=== PATIENT | female | born 1970 | race Caucasian/White ===

== ENCOUNTER 2017-11-16 07:45 | Emergency (ER) | END 2017-11-16 10:15 | disposition home or self-care (01) ==

== ENCOUNTER 2019-02-18 13:06 | Emergency (ER) | payer OTHER ==
[~2019-02-18] VITALS: Ht 160 cm; Wt 59.6 kg
[~2019-02-18 13:06] MED LIST: IBUP-1542 PO
[2019-02-18 13:24] VITALS: Ht 160 cm; Wt 59.6 kg
[2019-02-18] MEDS ORDERED: ONDANSETRON 4 MG INJ IV STA (13:58)
[2019-02-18] MEDS ORDERED: LACTATED RINGER'S 1,000 ML IV STA (13:58)
[2019-02-18] MEDS ORDERED: morphine 4 MG/ML VIAL IV STA (13:58)
--- NOTE | 2019-02-18 15:02 | ERD ---
ER Documentation Chief Complaint Chief Complaint ON AND OFF ABD PAIN X6 DAYS, NO N/V/D HPI This is a 49-year-old female with no previous medical problems who presents to the ER for evaluation of abdominal pain. The patient states that she had abdominal pain for the past 6 days which is progressively gotten worse. She does state that her abdominal pain started after a coughing episode and she thinks that she could have a hernia. The patient localizes the abdominal pain to the right lower portion abdomen and came to the emergency room today for evaluation. She denies any fevers chills nausea vomiting associated with this. She denies any relieving factors at this time and states that coughing or movement of her abdomen makes it worse ROS All systems reviewed and are negative except as per history of present illness. Medications Home Meds Discontinued Scripts Ibuprofen* (Ibuprofen*) 600 Mg Tablet, 600 MG PO Q8 for PAIN AND/OR INFLAMMATION, #30 TAB Prov:SILVER HANEY MD 11/16/17 Allergies Allergies: Coded Allergies: Penicillins (Unverified Allergy, Mild, 02/18/19) cephalexin (Verified Allergy, Mild, 02/18/19) PMhx/Soc Medical and Surgical Hx: pt denies Medical Hx, pt denies Surgical Hx Hx Alcohol Use: Yes (socially) Hx Substance Use: No Hx Tobacco Use: Yes ('quit recently') Smoking Status: Former smoker Physical Exam Vitals Vital Signs Date Temp Pulse Resp B/P (MAP) Pulse Ox O2 O2 Flow FiO2 Time Delivery Rate 02/18/19 75 18 125/92 98 Room Air 15:27 (103) 02/18/19 97.7 71 16 124/82 98 13:24 (96) Physical Exam INITIAL VITAL SIGNS: Reviewed by me GENERAL: The patient is well developed and appropriate for usual state of health in no apparent distress HEENT: Pupils equal, round, and reactive to light. EOMI. There is no scleral icterus. NECK: C-spine is soft and supple, there is no meningismus. There is no cervical lymphadenopathy. LUNGS: Clear to auscultation bilaterally. There are no rales, wheezes or rhonchi. HEART: Regular rate and rhythm, no murmurs, clicks, rubs or gallops. ABDOMEN: Periumbilical tenderness to palpation, right lower quadrant tenderness to palpation, otherwise soft, non-tender, non-distended. There are bowel sounds in all four quadrants. No rebound or guarding. EXTREMITIES: There is no peripheral cyanosis or edema. No focal swelling or erythema. NEUROLOGICAL: The patient moves all four extremities with 5/5 strength. Cranial nerves II - XII are intact. Normal gait. Alert and oriented SKIN: There is no apparent rash or petechiae. HEME/LYMPHATIC: There is no evidence of excessive bruising or lymphedema. PSYCHIATRIC: The patient does not appear anxious or depressed. Result Diagram: 02/18/19 1415 02/18/19 1415 Results 24 hrs Laboratory Tests Test 02/18/19 14:08 02/18/19 14:15 POC Beta HCG, Qualitative NEGATIVE White Blood Count 10.6 10^3/ul Red Blood Count 4.04 10^6/ul Hemoglobin 13.9 g/dl Hematocrit 41.7 % Mean Corpuscular Volume 103.2 fl Mean Corpuscular Hemoglobin 34.4 pg Mean Corpuscular Hemoglobin Concent 33.3 g/dl Red Cell Distribution Width 12.7 % Platelet Count 258 10^3/UL Mean Platelet Volume 8.8 fl Immature Granulocytes % 0.800 % Neutrophils % 63.4 % Lymphocytes % 25.2 % Monocytes % 8.4 % Eosinophils % 1.5 % Basophils % 0.7 % Nucleated Red Blood Cells % 0.0 /100WBC Immature Granulocytes # 0.090 10^3/ul Neutrophils # 6.7 10^3/ul Lymphocytes # 2.7 10^3/ul Monocytes # 0.9 10^3/ul Eosinophils # 0.2 10^3/ul Basophils # 0.1 10^3/ul Nucleated Red Blood Cells # 0.0 10^3/ul Urine Color YELLOW Urine Clarity SLIGHTLY CLOUDY Urine pH 5.0 Urine Specific [place] 1.010 Urine Ketones NEGATIVE mg/dL Urine Nitrite NEGATIVE mg/dL Urine Bilirubin NEGATIVE mg/dL Urine Urobilinogen NEGATIVE mg/dL Urine Leukocyte Esterase 1+ Cedric/ul Urine Microscopic RBC 4 /HPF Urine Microscopic WBC 4 /HPF Urine Squamous Epithelial Cells FEW /HPF Urine Bacteria FEW /HPF Urine Mucus FEW /HPF Urine Hemoglobin NEGATIVE mg/dL Urine Glucose NEGATIVE mg/dL Urine Total Protein NEGATIVE mg/dl Sodium Level 142 mmol/L Potassium Level 4.4 mmol/L Chloride Level 107 mmol/L Carbon Dioxide Level 21 mmol/L Anion Gap 14 Blood Urea Nitrogen 9 mg/dl Creatinine 0.68 mg/dl Est Glomerular Filtrat Rate mL/min > 60 mL/min Glucose Level 83 mg/dl Calcium Level 9.3 mg/dl Total Bilirubin 0.6 mg/dl Direct Bilirubin 0.00 mg/dl Indirect Bilirubin 0.6 mg/dl Aspartate Amino Transf (AST/SGOT) 174 IU/L Alanine Aminotransferase (ALT/SGPT) 87 IU/L Alkaline Phosphatase 90 IU/L Total Protein 7.8 g/dl Albumin 4.5 g/dl Globulin 3.30 g/dl Albumin/Globulin Ratio 1.36 Lipase 266 U/L Current Medications Medications Dose Sig/Sarah Start Time Status Last (Trade) Ordered Route PRN Stop Time Admin Dose Reason Admin Lactated 1,000 ml @ Q1H STAT 02/18/19 DC 02/18/19 Ringer's 1,000 mls/hr IV 13:58 14:14 02/18/19 14:57 Morphine 4 mg ONCE STAT 02/18/19 DC Sulfate IV 13:58 (morphine) 02/18/19 13:59 Ondansetron 4 mg ONCE STAT 02/18/19 DC HCl (Zofran IV 13:58 Inj) 02/18/19 13:59 Procedures/MDM CT abdomen pelvis without IV contrast: 1. Hepatic steatosis. 2. There is a small fat-containing umbilical hernia. 3. There is a 3.4 cm hyperattenuating lesion of the right rectus abdominous musculature. There is associated thickening of the adjacent muscle. Follow-up to exclude rectus sheath hematoma versus neoplasm. 4. There is bilateral adnexal hypodense lesions with associated bilateral punctate peripheral calcifications. Follow-up pelvic ultrasound recommended. This is a 49-year-old female presents the ER for evaluation of abdominal pain. On my exam the patient did have some abdominal pain in the right periumbilical region and right lower quadrant. Lab work was obtained and lab work does not show any significant electrolyte abnormalities or white blood cell elevation. She does state that she has been sick recently and has been coughing a lot. Given the fact that the patient had pain in the right lower quadrant I did obtain a CT. CT does show a fat-containing umbilical hernia, there is no signs of appendicitis however there is possibly a rectal sheath inflammation versus hematoma versus early neoplasm. I did speak with the patient in regards to this. I do feel this patient likely has some irritation and possible hematoma secondary to multiple coughing episodes. The patient was advised that she will need to be treated with anti-inflammatory medications, and will need to see a general surgeon as an outpatient. She did verbalize understanding. I did explain to her multiple times that it is extremely crucial follow-up with a general surgeon or to return to the ER immediately if her pain does not improve in the next 24 hours. The patient states that she is leaving for vacation and advised that if she continues to have pain that she will need to see a physician or go to the emergency room wherever she is vacationing to. I explained to her that if she does have a hematoma hematoma cannot increase in size. The patient is comfortable with her plan of care will be discharged home with a prescription for Naprosyn Departure Diagnosis: Primary Impression: Abdominal pain Additional Impressions: Hernia Rectus sheath hematoma Condition: BRENTON Celis DO Feb 18, 2019 15:02
[2019-02-18 15:27] VITALS: BP 125/92; PULSE 75; RESP 18
[2019-02-18] MEDS ORDERED: KETOROLAC 15 MG INJ IV STA (16:11)
[2019-02-18] MEDS ORDERED: NAPR-985 PO (16:15)
== END 2019-02-18 16:33 | disposition home or self-care (01) ==
LOC: E/R 13:06
DX: K46.9 Unspecified abdominal hernia without obstruction or gangrene (principal); K62.89 Other specified diseases of anus and rectum; R40.2142 Coma scale, eyes open, spontaneous, at arrival to emergency department; R40.2362 Coma scale, best motor response, obeys commands, at arrival to emergency department; R40.2252 Coma scale, best verbal response, oriented, at arrival to emergency department; Z87.891 Personal history of nicotine dependence
CPT/HCPCS: 36415; 74176; 80053; 81001; 81025; 83690; 85025; 96361; 96374; 99285; J1885; J7120